=== PATIENT | male | born 2000 | race Caucasian/White ===

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

== ENCOUNTER 2022-06-26 07:56 | Emergency (ER) | payer BC ==
[2022-06-26 08:02] VITALS: BP 120/67; PULSE 58; RESP 20; TEMP 97.9
[2022-06-26] MEDS ORDERED: MORPHINE SULFATE 4 MG/ML SYRINGE IM STA (08:10)
--- NOTE | 2022-06-26 08:36 | XR ---
EXAMINATION TYPE: XR ankle complete LT DATE OF EXAM: 06/26/2022 COMPARISON: None HISTORY: Pain and TECHNIQUE: 3 view left ankle FINDINGS: There is soft tissue swelling over the lateral malleolus. The ankle mortise is intact. No a cute fractures or dislocations are evident. Follow up exams can be performed 7-10 days from acute trauma for continued pain. MRI could be perform ed for evaluation of soft tissues. IMPRESSION: 1. Soft tissue swelling lateral malleolus. 2. No acute osseous abnormality.
[2022-06-26] MEDS ORDERED: ACET/COD 300 MG/30 MG STARTER PACK 6 TAB BTL PO STA (08:51)
--- NOTE | 2022-06-26 08:53 | ED ---
Lower Extremity Injury HPI - General Chief Complaint: Extremity Injury, Lower Stated Complaint: left ankle injury Time Seen by Provider: 06/26/22 07:58 Source: patient, RN notes reviewed Mode of arrival: ambulatory Limitations: no limitations - History of Present Illness Initial Comments: 30-year-old male presents emergency Department with chief complaint left ankle pain. Patient states one step outside of his father states that his ankle rolled him in the left lateral ankle pain no pain distal proximal. No prior injuries no prior fractures. Patient is complains paresthesias patient is barely able to bear weight on the left ankle. - Related Data Home Medications Medication Instructions Recorded Confirmed FLUoxetine HCL [PROzac] 20 mg PO DAILY 04/12/16 05/24/20 Dextroamphetamine/Amphetamine 30 mg PO QAM 05/24/20 05/24/20 [Adderall Xr] Previous Rx's Medication Instructions Recorded Ketorolac [Toradol] 10 mg PO Q6HR #15 tab 05/24/20 Tamsulosin [Flomax] 0.4 mg PO DAILY #10 cap 05/24/20 Ibuprofen [Motrin] 600 mg PO Q8HR PRN #20 tab 06/26/22 Allergies Allergy/AdvReac Type Severity Reaction Status Date / Time quetiapine fumarate Allergy Confusion Verified 06/26/22 08:02 [From Seroquel] Review of Systems ROS Statement: Those systems with pertinent positive or pertinent negative responses have been documented in the HPI. ROS Other: All systems not noted in ROS Statement are negative. Past Medical History Past Medical History: No Reported History History of Any Multi-Drug Resistant Organisms: None Reported Past Surgical History: No Surgical Hx Reported Past Psychological History: Depression, Panic Disorder Smoking Status: Smoker, current status unknown Past Alcohol Use History: Occasional Past Drug Use History: None Reported General Exam Limitations: no limitations General appearance: alert, in no apparent distress Head exam: Present: atraumatic, normocephalic, normal inspection Eye exam: Present: normal appearance, PERRL, EOMI. Absent: scleral icterus, conjunctival injection, periorbital swelling Respiratory exam: Present: normal lung sounds bilaterally. Absent: respiratory distress, wheezes, rales, rhonchi, stridor Cardiovascular Exam: Present: regular rate, normal rhythm, normal heart sounds. Absent: systolic murmur, diastolic murmur, rubs, gallop, clicks Extremities exam: Present: other (Left ankle there is lateral malleolar swelling, tenderness of palpation there is no distal foot tenderness no proximal tib-fib tenderness pedal pulses equal bilateral) Course Vital Signs 06/26/22 08:00 Temperature 97.9 F Pulse Rate 58 L Respiratory 20 Rate Blood Pressure 120/67 O2 Sat by Pulse 98 Oximetry Medical Decision Making - Medical Decision Making X-rays negative for acute fracture. Patient has a left ankle sprain. Patient we discharged stable condition return parameters were discussed. Disposition Clinical Impression: Left ankle sprain Disposition: HOME SELF-CARE Condition: Stable Instructions (If sedation given, give patient instructions): Ankle Sprain (ED) Additional Instructions: Please return to the Emergency Department if symptoms worsen or any other concerns. Prescriptions: Ibuprofen [Motrin] 600 mg PO Q8HR PRN #20 tab PRN Reason: Pain Is patient prescribed a controlled substance at d/c from ED?: No Referrals: Georgette Carlson DO [Primary Care Provider] - 1-2 days Fran Garcia MD [Medical Doctor] - 1-2 days Time of Disposition: 08:53
== END 2022-06-26 09:20 | disposition home or self-care (01) ==
LOC: EC 07:56
DX: S93.402A Sprain of unspecified ligament of left ankle, initial encounter (principal); F17.200 Nicotine dependence, unspecified, uncomplicated; Z88.8 Allergy status to other drugs, medicaments and biological substances; X58.XXXA Exposure to other specified factors, initial encounter
CPT/HCPCS: 99284; 96372; 73610; L4350; J2270

== ENCOUNTER 2025-03-22 00:17 | Emergency (ER) | payer BC ==
[2025-03-22 00:52] VITALS: TEMP 97.8
--- NOTE | 2025-03-22 00:53 | ED ---
Abdominal Pain HPI - General Chief Complaint: Headache Stated Complaint: headache Time Seen by Provider: 03/22/25 00:52 Source: patient, RN notes reviewed, old records reviewed Mode of arrival: ambulatory Limitations: no limitations - History of Present Illness Initial Comments: This is a 25-year-old male to ER with headache. Patient is on day 2 of a h eadache around 36 hours of persistent headache feels it was worse after using a neti pot, symptoms persist here in the emergency department coming with mom concern for cause of headache. No trauma no fevers no active nausea vomiting. No other complaints MD Complaint: other (Headache) -: days(s) (1.5) Location: diffuse Migration to: no migration Severity: moderate Severity scale (1-10): 7 Quality: aching, sharp Consistency: constant Improves With: nothing Worsens With: nothing Associated Symptoms: nausea Treatments Prior to Arrival: NSAIDs - Related Data Home Medications Medication Instructions Recorded Confirmed FLUoxetine HCL [PROzac] 20 mg PO DAILY 04/12/16 05/24/20 Dextroamphetamine/Amphetamine 30 mg PO QAM 05/24/20 05/24/20 [Adderall Xr] Previous Rx's Medication Instructions Recorded Ketorolac [Toradol] 10 mg PO Q6HR #15 tab 05/24/20 Tamsulosin [Flomax] 0.4 mg PO DAILY #10 cap 05/24/20 Ibuprofen [Motrin] 600 mg PO Q8HR PRN #20 tab 06/26/22 Allergies Allergy/AdvReac Type Severity Reaction Status Date / Time quetiapine fumarate Allergy Confusion Verified 03/22/25 00:28 [From Seroquel] Review of Systems ROS Statement: Those systems with pertinent positive or pertinent negative responses have been documented in the HPI. ROS Other: All systems not noted in ROS Statement are negative. Past Medical History Past Medical History: No Reported History History of Any Multi-Drug Resistant Organisms: None Reported Past Surgical History: No Surgical Hx Reported Past Psychological History: Depression, Panic Disorder Smoking Status: Smoker, current status unknown Past Alcohol Use History: Occasional Past Drug Use History: None Reported General Exam Limitations: no limitations General appearance: alert, in no apparent distress Head exam: Present: atraumatic, normocephalic, normal inspection Eye exam: Present: normal appearance, PERRL, EOMI. Absent: scleral icterus, conjunctival injection, periorbital swelling ENT exam: Present: normal exam, mucous membranes moist Neck exam: Present: normal inspection. Absent: tenderness, meningismus, lymphadenopathy Respiratory exam: Present: normal lung sounds bilaterally. Absent: respiratory distress, wheezes, rales, rhonchi, stridor Cardiovascular Exam: Present: regular rate, normal rhythm, normal heart sounds. Absent: systolic murmur, diastolic murmur, rubs, gallop, clicks GI/Abdominal exam: Present: soft, normal bowel sounds. Absent: distended, tenderness, guarding, rebound, rigid Extremities exam: Present: normal inspection, full ROM, normal capillary refill. Absent: tenderness, pedal edema, joint swelling, calf tenderness Back exam: Present: normal inspection Neurological exam: Present: alert, oriented X3, CN II-XII intact Psychiatric exam: Present: normal affect, normal mood Skin exam: Present: warm, dry, intact, normal color. Absent: rash Course Vital Signs 03/22/25 03/22/25 00:23 00:43 Temperature 97.8 F Pulse Rate 83 Respiratory 20 20 Rate Blood Pressure 134/81 O2 Sat by Pulse 99 99 Oximetry - Reevaluation(s) Reevaluation #1: 03/22/25 02:50 Medical records reviewed Reevaluation #2: 03/22/25 02:50 Patient's headache is resolved Reevaluation #3: 03/22/25 02:50 Patient informed of results and questions answered Reevaluation #4: Was pt. sent in by a medical professional or institution (, PA, EMAIL OPERATIONS MANAGER, urgent care, hospital, or custodial...) When possible be specific @ -no Did you speak to anyone other than the patient for history (EMS, parent, family, police, friend...)? What history was obtained from this source @ -no Did you review nursing and triage notes (agree or disagree)? Why? @ -agree Are old charts reviewed (outside hosp., previous admission, EMS record, old EKG, old radiological studies, urgent care reports/EKG's, custodial records)? Re port findings @ -yes Differential Diagnosis (chest pain, altered mental status, abdominal pain women, abdominal pain men, vaginal bleeding, weakness, fever, dyspnea, syncope, headache, dizziness, GI bleed, back pain, seizure, CVA, palpatations, mental health, musculoskeletal)? @ -prior EKG interpreted by me (3pts min.). @ -yes X-rays interpreted by me (1pt min.). @ -yes negative for acute disease CT interpreted by me (1pt min.). @ -no U/S interpreted by me (1pt. min.). @ -no What testing was considered but not performed or refused? (CT, X-rays, U/S, labs)? Why? @ -none What meds were considered but not given or refused? Why? @ -none Did you discuss the management of the patient with other professionals (professionals i.e. , PA, EMAIL OPERATIONS MANAGER, lab, RT, psych nurse, health care social worker, solar sales representative, teacher, retail loss prevention officer, casework supervisor)? Give summary @ -no Was smoking cessation discussed for >3mins.? @ -no Was critical care preformed (if so, how long)? @ -no Were there social determinants of health that impacted care today? How? (Homelessness, low income, unemployed, alcoholism, drug addiction, transportation, low edu. Level, literacy, decrease access to med. care, intermediate, rehab)? @ -none Was there de-escalation of care discussed even if they declined (Discuss DNR or withdrawal of care, Hospice)? DNR status @ -no What co-morbidities impacted this encounter? (DM, HTN, Smoking, COPD, CAD, Cancer, CVA, ARF, Chemo, Hep., AIDS, mental health diagnosis, sleep apnea, morbid obesity)? @ -none Was patient admitted / discharged? Hospital course, mention meds given and route, prescriptions, significant lab abnormalities, going to OR and other pertinent info. @ - Undiagnosed new problem with uncertain prognosis? @ -no Drug Therapy requiring intensive monitoring for toxicity (Heparin, Nitro, Insulin, Cardizem)? @ -no Were any procedures done? @ -no Diagnosis/symptom? @ - Acute, or Chronic, or Acute on Chronic? @ -Acute Uncomplicated (without systemic symptoms) or Complicated (systemic symptoms)? @ -Complicated Side effects of treatment? @ -no Exacerbation, Progression, or Severe Exacerbation? @ -exacerbation Poses a threat to life or bodily function? How? (Chest pain, [place], [place], pneumonia, PE, COPD, DKA, ARF, appy, cholecystitis, CVA, Diverticulitis, Homicidal, Suicidal, threat to staff... and all critical care pts) @ -yes Reevaluation #5: Differential Headache: Migraine, tension, cluster, carbon monoxide, central venous thrombosis, pension karma temporal arteritis, acute closure glaucoma, intercranial hemorrhage, mastoiditis, sinusitis, head injury, this is not meant to be an all-inclusive list. Medical Decision Making - Medical Decision Making 25 male with nonspecific severe headache. CT scanning is negative here in the ER headache is improved and resolved, patient feels well can be discharged home - Radiology Data Radiology results: report reviewed (CT brain is negative for acute disease), image reviewed Disposition Clinical Impression: Headache Disposition: HOME SELF-CARE Condition: Fair Instructions (If sedation given, give patient instructions): Acute Headache (ED) Is patient prescribed a controlled substance at d/c from ED?: No Referrals: Georgette Carlson DO [Primary Care Provider] - 1-2 days Time of Disposition: 02:50
[2025-03-22] MEDS: PROCHLORPERAZINE INJ 10 MG/2 ML VIAL IVP STA (01:06)
[2025-03-22] MEDS: KETOROLAC 15 MG/ML 1 ML VIAL IVP STA (01:06)
[2025-03-22] MEDS: SODIUM CHLORIDE 0.9% 1,000 ML IV SCH (01:06)
[2025-03-22] MEDS: diphenhydrAMINE 50 MG/ML 1 ML VIAL IVP STA (01:06)
[2025-03-22] MEDS: KETOROLAC 15 MG/ML 1 ML VIAL IM STA (01:13)
[2025-03-22] MEDS: PROCHLORPERAZINE 10 MG TAB PO STA (01:25)
[2025-03-22] MEDS: diphenhydrAMINE 50 MG CAP PO STA (01:25)
--- NOTE | 2025-03-22 02:43 | CT ---
EXAM: CT Head Without Intravenous Contrast CLINICAL HISTORY: ITS.REASON CT Reason: STEVENS TECHNIQUE: Axial computed tomography images of the head/brain without intravenous contrast. CTDI is 49.2 mGy and DLP is 1227.4 mGy-cm. This CT exam was performed using one or more of the following dose reduction techniques: automated exposure control, adjustment of the mA and/or kV according to patient size, and/or use of iterative reconstruction technique. COMPARISON: No relevant prior studies available. FINDINGS: No acute intracranial hemorrhage. No midline shift or mass effect. The territorial chance-white matter differentiation is maintained throughout. The ventricles and sulci are commensurate with age. The visualized orbits appear grossly unremarkable. The calvarium is intact. Opacified RIGHT paranasal sinuses. IMPRESSION: No acute intracranial hemorrhage, midline shift, or mass effect.
[2025-03-22 03:06] VITALS: BP 122/86; PULSE 71; RESP 17
== END 2025-03-22 03:06 | disposition home or self-care (01) ==
LOC: EC 00:17
DX: R51.9 Headache, unspecified (principal); F17.200 Nicotine dependence, unspecified, uncomplicated; Z88.8 Allergy status to other drugs, medicaments and biological substances
CPT/HCPCS: 70450; 99284; 96372; S0183; J1885